=== PATIENT | male | born 1970 | race Caucasian/White ===

== ENCOUNTER → 2017-10-08 | Outpatient (CLI) | payer OTHER ==
[~2017-10-08] MED LIST: APIX5TAB PO; OMEP-110 PO
== END | disposition home or self-care (01) ==
LOC: CFH 06:38
PROVIDERS: ATTEND Nurse Practitioner Family
DX: I08.1 Rheumatic disorders of both mitral and tricuspid valves (principal); I27.29 Other secondary pulmonary hypertension; E78.5 Hyperlipidemia, unspecified; Z72.0 Tobacco use; Z86.711 Personal history of pulmonary embolism
CPT/HCPCS: 93306

== ENCOUNTER 2020-05-12 10:04 | Emergency (ER) | payer OTHER ==
[~2020-05-12] VITALS: Ht 190.5 cm; Wt 86.7 kg
[~2020-05-12 10:04] MED LIST changes: +AMOX1TAB64 PO; +CIPR750T PO; +METR500T PO
[2020-05-12 10:08] VITALS: BP 109/73
[2020-07-10] MEDS ORDERED: OMEP-110 PO (15:09)
[2020-07-10] MEDS ORDERED: ATOR20TA37 PO (15:09)
[2020-07-11] MEDS ORDERED: ONDA4TAB7 PO (13:17)
[2020-07-11] MEDS ORDERED: OXYC5CAP2 PO (13:17)
== END 2020-05-12 11:40 | disposition home or self-care (01) ==
LOC: ED 11:25
DX: I80.8 Phlebitis and thrombophlebitis of other sites (principal)
CPT/HCPCS: 99284

== ENCOUNTER → 2020-07-06 | Outpatient (CLI) | payer OTHER | END | disposition home or self-care (01) | LOC: STAR 07:38 | PROVIDERS: ATTEND Anesthesiology | DX: Z01.812 Encounter for preprocedural laboratory examination (principal); Z20.828 Contact with and (suspected) exposure to other viral communicable diseases | CPT/HCPCS: 36415; 87635 ==

== ENCOUNTER 2021-04-28 13:33 | Emergency (ER) | payer SELFPAY ==
[~2021-04-28] VITALS: Ht 193 cm; Wt 89.9 kg
[~2021-04-28 13:33] MED LIST changes: +ATOR20TA37 PO; +ONDA4TAB7 PO; +OXYC5CAP2 PO
--- NOTE | 2021-04-28 13:46 | NUR ---
PT C/O LOWER ABD PAIN X2 DAYS, WORSE TODAY, STATES HE TOOK 2 DULCOLAX YESTERDAY AND HAD BM. HX. DIVERTICULITIS WITH COLON RESECTION 1 YEAR AGO. PLACED ON VITALS MONITORS.
--- NOTE | 2021-04-28 14:00 | NUR ---
REPORT FROM [facility]. PT RESTING, PRESENT. WAITING FOR FURTHER ORDERS
[2021-04-28] MEDS ORDERED: ONDANSETRON 2MG/ML, 2ML IVPush ONE (15:00)
[2021-04-28] MEDS ORDERED: SODIUM CHLORIDE 0.9% 1,000ML IVBOLUS ONE (15:00)
[2021-04-28] MEDS ORDERED: SODIUM CHLORIDE FLUSH 10ML SYR IVF ONE (15:00)
[2021-04-28] MEDS ORDERED: ONDANSETRON 2MG/ML, 2ML ONE (15:05)
--- NOTE | 2021-04-28 15:10 | NUR ---
IVF, LABS, GIVEN DYANA.
[2021-04-28 15:20] LABS: BASOPHILS % (AUTO) 1 % (0-1); EOSINOPHILS % (AUTO) 1 % (1-7); LYMPHOCYTES % (AUTO) 24 % (22-44); MEAN CORPUSCULAR HEMOGLOBIN 31.1 pg (27.5-34.5); MEAN CORPUSCULAR HGB CONC 33.9 g/dL (33.2-36.2); MEAN PLATELET VOLUME 7.3 fL (7.4-10.4); MONOCYTES % (AUTO) 10 % (2-9); NEUTROPHILS % (AUTO) 65 % (42-75); PLATELET COUNT 272 x10^3/uL (130-400); RED BLOOD COUNT 5.37 x10^6/uL (4.38-5.82); RED CELL DISTRIBUTION WIDTH 12.9 % (9.4-14.8)
[2021-04-28 15:32] LABS: ALBUMIN 4.2 g/dL (3.4-5.0); CALCIUM 9.3 mg/dL (8.5-10.1)
[2021-04-28 15:35] LABS: ALANINE AMINOTRANSFERASE 52 U/L (12-78); ALKALINE PHOSPHATASE 86 U/L (45-117); CREATININE 0.98 mg/dL (0.7-1.3); TOTAL PROTEIN 8.2 g/dL (6.4-8.2)
[2021-04-28 15:40] LABS: ANION GAP 2 mmol/L (5-15); CHLORIDE 106 mmol/L (98-107)
[2021-04-28 15:44] LABS: MICROSCOPIC NOT IND
--- NOTE | 2021-04-28 16:01 | NUR ---
PT GIVEN BLANKET.
--- NOTE | 2021-04-28 17:23 | NUR ---
PT STILL WAITING FOR CT
--- NOTE | 2021-04-28 18:00 | NUR ---
MD KIRK DISCUSSING POC. PLAC FOR DC
--- NOTE | 2021-04-28 18:34 | NUR ---
Patient given discharge instructions and they have confirmed that they understand the instructions. Patient ambulatory with steady gait.
[2021-04-28 18:35] VITALS: BP 120/75
[2021-04-28] MEDS ORDERED: OMNIPAQUE 350 MG/ML, 100ML BOTTLE ONE (23:29)
== END 2021-04-28 18:36 ==
LOC: ED 14:24
DX: K40.20 Bilateral inguinal hernia, without obstruction or gangrene, not specified as recurrent (principal); R10.31 Right lower quadrant pain; R10.32 Left lower quadrant pain; R19.7 Diarrhea, unspecified; Z86.711 Personal history of pulmonary embolism; Z87.891 Personal history of nicotine dependence
CPT/HCPCS: 36415; 74177; 80053; 81003; 83690; 85025; 93005; 96361; 96374; 99285; J2405; J7030; Q9967

== ENCOUNTER 2021-06-13 13:46 | Outpatient (CLI) | payer OTHER | END 2021-06-13 23:59 | disposition home or self-care (01) | LOC: RAD 13:46 | PROVIDERS: ATTEND Internal Medicine Clinical Cardiac Electrophysiology | DX: I26.99 Other pulmonary embolism without acute cor pulmonale (principal); R06.02 Shortness of breath | CPT/HCPCS: 71045; 78582; A9540; A9558 ==

== ENCOUNTER 2021-07-01 14:01 | Outpatient (CLI) | payer OTHER | END 2021-07-01 23:59 | disposition home or self-care (01) | LOC: CVU 14:01 | PROVIDERS: ATTEND Internal Medicine Clinical Cardiac Electrophysiology | DX: I08.8 Other rheumatic multiple valve diseases (principal); I26.99 Other pulmonary embolism without acute cor pulmonale; R06.02 Shortness of breath | CPT/HCPCS: 93306; 93356 ==